=== PATIENT | male | born 1965 | race Caucasian/White ===

== ENCOUNTER 2016-09-04 10:47 | Emergency (ER) | payer OTHER ==
[2016-09-04 10:47] VITALS: BMI 28.3
--- NOTE | 2016-09-04 11:01 | C.PDOC ---
History Of Present Illness 51M c/o right low back "burning" pain rad down to buttock and leg and around to the right lower abdomen, constant since yesterday. took tylenol last night without relief. no trauma. no fever, chills, n/v, dysuria. denies sig pmh or psh. Time Seen by Provider: 09/04/16 10:56 Chief Complaint (Nursing): Back Pain Past Medical History Vital Signs: Last Vital Signs Temp 98.8 F 09/04/16 13:58 Pulse 52 L 09/04/16 13:58 Resp 17 09/04/16 13:58 BP 125/75 09/04/16 13:58 Pulse Ox 97 09/04/16 13:58 Family History: States: Other Other Family History: nc - Social History Hx Tobacco Use: No Hx Alcohol Use: Yes Hx Substance Use: No - Immunization History Hx Tetanus Toxoid Vaccination: No Hx Influenza Vaccination: No Hx Pneumococcal Vaccination: No Review Of Systems Constitutional: Negative for: Fever, Chills, Weakness, Malaise Cardiovascular: Negative for: Chest Pain, Edema Respiratory: Negative for: Cough, Shortness of Breath Gastrointestinal: Negative for: Nausea, Vomiting Genitourinary: Negative for: Dysuria, Incontinence, Hematuria Musculoskeletal: Positive for: Back Pain Neurological: Negative for: Weakness, Numbness, Headache Physical Exam - Physical Exam Appears: Well, Non-toxic, No Acute Distress Skin: Warm, Dry Head: Atraumatic Respiratory: No Decreased Breath Sounds, No Accessory Muscle Use Gastrointestinal/Abdominal: Soft, Tenderness (below RLQ), No Distention, No Guarding, No Rebound Back: No Vertebral Tenderness, Paraspinal Tenderness (right side), Straight Leg Raising (exacerbated pain on the right but no rad below knee) Extremity: No Swelling Pulses: Left Femoral: Normal, Right Femoral: Normal, Left Dorsalis Pedis: Normal , Right Dorsalis Pedis: Normal Neurological/Psych: Oriented x3, Normal Motor, Normal Sensation, Other (nl strength in bl hip/knee/ankle flex/extens and EHL. reflexes symmetric. ) ED Course And Treatment - Laboratory Results Result Diagrams: 09/04/16 11:49 09/04/16 11:49 O2 Sat by Pulse Oximetry: 97 Medical Decision Making Medical Decision Making: bedside ultrasound shows normal caliber aorta in prox, mid, and distal portion, 1.3cm, 1.3cm, 1.2cm respectively. 153pm pt reports pain improved, pain is mainly right reproducible low back no abd pain at this time. pt comfortable w dc. follow up and return prec advised. Disposition - Disposition Disposition: HOME/ ROUTINE Disposition Time: 13:56 Condition: IMPROVED Additional Instructions: Please follow up with your doctor. Return to the ER for any worsening symptoms or for any other concerns. Prescriptions: Cyclobenzaprine [Cyclobenzaprine HCl] 10 mg PO TID PRN #20 tab PRN Reason: Pain, Severe (8-10) Naproxen [Naprosyn] 500 mg PO Q12H PRN #10 tablet PRN Reason: Pain, Moderate (4-7) Instructions: Acute Low Back Pain (ED), Back Exercises (ED) Forms: General Discharge Instructions - Clinical Impression Clinical Impression: Low back pain
[2016-09-04 12:02] LABS: RBC URINE 1 /hpf (0-3); URINE BILIRUBIN NEGATIVE (NEGATIVE); URINE BLOOD NEGATIVE (NEGATIVE); URINE COLOR Yellow (YELLOW); URINE GLUCOSE (UA) NORMAL (Normal); URINE KETONE NEGATIVE (NEGATIVE); URINE LEUKOCYTE ESTERASE NEG Leu/uL (Negative); URINE PROTEIN NEGATIVE (NEGATIVE); URINE UROBILINOGEN NORMAL mg/dL (0.2-1.0); WBC URINE 1 /hpf (0-5)
[2016-09-04 12:03] LABS: BASO # 0.1 K/uL (0.0-0.2); BASO % 0.6 % (0.0-2.0); EOS # 0.8 K/uL (0.0-0.7); EOS % 9.4 % (0.0-4.0); HEMATOCRIT 44.2 % (35.0-51.0); LYMPH # 3.4 K/uL (1.0-4.3); MEAN CELL VOLUME 83.3 fL (80.0-94.0); MEAN CORPUSCULAR HEMOGLOBIN 27.7 pg (27.0-31.0); MEAN CORPUSCULAR HGB CONC 33.2 g/dL (33.0-37.0); MEAN PLATELET VOLUME 9.1 fL (7.2-11.7); MONO # 0.7 K/uL (0.0-0.8); MONO % 7.8 % (0.0-10.0); NRBC % 0.1 % (0.0-2.0); RED CELL DISTRIBUTION WIDTH 13.9 % (11.5-14.5); WHITE BLOOD COUNT 8.9 K/uL (4.8-10.8)
[2016-09-04 12:09] LABS: CHLORIDE 102 mmol/L (98-107)
[2016-09-04 12:10] LABS: POTASSIUM 4.3 mmol/L (3.6-5.2); SODIUM 139 mmol/L (132-148)
[2016-09-04 12:12] LABS: ALB/GLOB RATIO 1.2 (1.0-2.1); ALKALINE PHOSPHATASE 56 U/L (38-126); AST/SGOT 29 U/L (17-59); BILIRUBIN,TOTAL 0.9 mg/dL (0.2-1.3); CARBON DIOXIDE 28 mmol/L (22-30); GFR AFRICAN-AMERICAN > 60; TOTAL PROTEIN 7.3 g/dL (6.3-8.3)
[2016-09-04 12:13] LABS: ALT/SGPT 19 U/L (21-72); BLOOD UREA NITROGEN 21 mg/dL (9-20); CALCIUM 8.4 mg/dl (8.6-10.4); GLUCOSE,RANDOM 85 mg/dL (75-110)
[2016-09-04 13:58] VITALS: O2SAT 97
[2016-09-04 13:59] VITALS: BP 125/75; PULSE 52; RESP 17; TEMP 98.8
== END 2016-09-04 14:02 | disposition home or self-care (01) ==
LOC: C.ER 10:47
DX: M54.5 Low back pain (principal)
CPT/HCPCS: 80053; 81001; 85025; 94770; 96374; 96375; 99284; J1885; J2270